=== PATIENT | female | born 1970 | race Caucasian/White ===

== ENCOUNTER → 2017-10-20 | Outpatient (CLI) | payer OTHER ==
[~2017-10-20] MED LIST: GADOBUTROL 10 ML VIAL IVP ONE
== END ==
LOC: FIMAGING 12:54
DX: R53.82 Chronic fatigue, unspecified (principal); B33.22 Viral myocarditis; R93.1 Abnormal findings on diagnostic imaging of heart and coronary circulation
CPT/HCPCS: A9585